=== PATIENT | female | born 1995 | race Caucasian/White ===

== ENCOUNTER 2018-01-06 21:15 | Emergency (ER) | payer BC, OTHER ==
[2018-01-06 21:26] VITALS: TEMP 98.1; O2SAT 99
--- NOTE | 2018-01-06 21:36 | EDPHY ---
H & P Stated Complaint: anxiety/chest tightness beginning just before arrival Source: Patient Exam Limitations: No limitations - Medical/Surgical History Hx Asthma: No Hx Chronic Respiratory Disease: No Hx Diabetes: No Hx Cardiac Disease: No Hx Renal Disease: No Hx Cirrhosis: No Hx Alcoholism: No Hx HIV/AIDS: No Hx Splenectomy or Spleen Trauma: No Other PMH: anxiety/depression - Social History Smoking Status: Never smoked Time Seen by Provider: 01/06/18 21:35 HPI/ROS: HPI: This is a 22-year-old female who presents with Chief Complaint: anxiety/chest tightness beginning just before arrival Location:psych Quality: Anxiety Duration: Prior to arrival Signs and Symptoms: + dyspnea, + difficulty catching breath, no shortness of breath on exertion, no cough, no chest pain, no palpitations, no lower extremity edema, no wheezing, no orthopnea, no paroxysmal nocturnal dyspnea, no fever, no injury/trauma, no hemoptysis, no carpal pedal spasms Timing: Acute Severity: Moderate Context: Patient reports that she was at her home when she noticed a rash on her left hand and started to become anxious. She reports that she has a history of anxiety has never had a panic attack. She relates that as she became anxious about the rash on her hands her breathing pattern started to increase and she felt like she could not catch her breath. Boyfriend at bedside reports that she was extremely anxious and believes that she is having a panic attack. Denies any suicidal ideation/homicidal ideation. History depression or anxiety. Does not take any psychiatric medication. Modifying Factors: None Comment: ROS: see HPI Constitutional: No fever, no chills, no weight loss Eyes: No blurred vision Respiratory: No shortness of breath, no cough Cardiovascular: No chest pain, no palpitations, no lower extremity edema Gastrointestinal: No nausea, no vomiting, no diarrhea Genitourinary: No dysuria Extremities: No myalgias Neurologic: No weakness, no numbness Skin: No rashes Hematologic: No bruising, no bleeding MEDICAL/SURGICAL/SOCIAL HISTORY: Medical history: Generally healthy. Does not take any regular medications. Surgical history: Denies Social history: Student. CONSTITUTIONAL: Extremely pleasant, anxious, well-appearing young adult white female, boyfriend at bedside, awake and alert, no obvious distress HEENT: Atraumatic and normocephalic, PERRL, EOMI. Tympanic membranes clear. Oropharynx clear, no exudate and moist pink mucosa. Airway patent. No lymphadenopathy. No meningismus. Cardiovascular: Normal S1/S2, mild tachycardia, regular rhythm, without murmur rub or gallop. PULMONARY/CHEST: Symmetrical and nontender. Clear to auscultation bilaterally. Good air movement. No accessory muscle usage. ABDOMEN: Soft, nondistended, nontender, no rebound, no guarding, no peritoneal signs, no masses or organomegaly. No CVAT. EXTREMITIES: 2/2 pulses, strength 5/5, no deformities, no clubbing, no cyanosis or edema. NEUROLOGICAL: no focal neuro deficits. GCS 15. SKIN: Warm and dry, no erythema. no rash. Good capillary refill. (Candice Centeno) Constitutional: Initial Vital Signs Temperature (C) 36.7 C 01/06/18 21:22 Heart Rate 104 H 01/06/18 21:22 Respiratory Rate 18 01/06/18 21:22 Blood Pressure 134/91 H 01/06/18 21:22 O2 Sat (%) 99 01/06/18 21:22 O2 Delivery Mode Room Air Allergies/Adverse Reactions: No Known Allergies Allergy (Verified 01/06/18 21:26) Home Medications: Medication Instructions Recorded NK [No Known Home Meds] 05/15/15 Medical Decision Making ED Course/Re-evaluation: Vital signs reviewed upon arrival in show mild tachycardia. No signs of hypoxia/respiratory distress Low risk for pulmonary embolism/DVT Given 1 mg p.o. Ativan with complete resolution of symptoms. Does not meet M1 hold or Detainer criteria Advised to establish care with [facility]. This patient was seen under the supervision of my secondary supervising physician. I evaluated care for this patient independently. (Candice Centeno) This patient was evaluated and managed by the physician physician assistant surgery. I have reviewed the documentation and agree with the plan of care. I am the secondary supervising physician. (Maggie Billingsley) Differential Diagnosis: Shortness of breath including but not limited to pulmonary infectious process, anxiety, COPD, asthma, pulmonary embolus and congestive heart failure. (Candice Centeno) - Data Points Medications Given: Discontinued Medications Lorazepam (Ativan 1 Mg Prepack#4) 1 btl TAKEHOME EDNOW ONE Stop: 01/06/18 21:49 Last Admin: 01/06/18 22:05 Dose: 1 btl Departure - Departure Disposition: Home, Routine, Self-Care Clinical Impression: Panic attack Condition: Good Instructions: Anxiety (ED), Panic Attack (ED) Additional Instructions: Reduce stress as much as possible. Practice deep breathing exercises to slow breathing pattern. Establish care with [facility] if your anxiety continues to worsen or becomes a regular occurrence. Return to the ER immediately if you experience new, continued or worsened chest pain, chest pain that radiates, chest pain accompanied by exertion or associated with shortness of breath, sweating, nausea, dizziness, back pain, or any other symptoms that concern you. Referrals: [facility] [Outside] - As per Instructions
[2018-01-06] MEDS ORDERED: LORAZEPAM 1 MG PREPACK#4 BTL TAKEHOME ONE (21:48)
[2018-01-06 22:12] VITALS: BP 120/84; PULSE 98; RESP 16
== END 2018-01-06 22:11 | disposition home or self-care (01) ==
DX: F41.0 Panic disorder [episodic paroxysmal anxiety] (principal)